=== PATIENT | female | born 1940 | race Caucasian/White ===

== ENCOUNTER 2016-10-30 | Observation (INO) | payer MEDICARE ==
[2016-10-30 12:15] LABS: HEMOGLOBIN 12.9 gm/dl (12.3-15.3); RED BLOOD COUNT 4.47 M/UL (4.00-5.10)
[2016-10-30 12:35] LABS: BUN/CREATININE RATIO 18 (0-10)
[2016-10-30] MEDS ORDERED: PRADAXA150 MG PO (18:37)
[2016-10-30] MEDS ORDERED: FLECAINIDE ACE150 MG PO (18:38)
[2016-10-30] MEDS ORDERED: COZAAR100 MG PO (18:40)
[2016-10-30] MEDS ORDERED: SENOKOT-S TABL1 EACH PO (18:41)
[2016-10-30] MEDS ORDERED: VITAMIN D31000 UNIT PO (18:43)
[2016-10-30] MEDS ORDERED: TYLENOL EXTRA500 MG PO (18:56)
[2016-10-30] MEDS ORDERED: TYLENOL 500 MG500 MG PO (19:00)
[2016-10-31 04:54] LABS: HEMOGLOBIN 12.1 gm/dl (12.3-15.3); RED BLOOD COUNT 4.17 M/UL (4.00-5.10); WHITE BLOOD COUNT 9.1 K/UL (4.5-11.0)
[2016-10-31 05:12] LABS: BUN/CREATININE RATIO 19 (0-10)
== END 2016-10-31 12:30 | disposition home or self-care (01) ==
PROVIDERS: Emergency Medicine; ADMIT Emergency Medicine
DX: I48.91 Unspecified atrial fibrillation (principal); E11.9 Type 2 diabetes mellitus without complications; I10 Essential (primary) hypertension; Z79.52 Long term (current) use of systemic steroids; Z79.899 Other long term (current) drug therapy; Z90.49 Acquired absence of other specified parts of digestive tract; Z90.89 Acquired absence of other organs; Z82.49 Family history of ischemic heart disease and other diseases of the circulatory system; Z82.3 Family history of stroke; Z80.1 Family history of malignant neoplasm of trachea, bronchus and lung
CPT/HCPCS: 36415; 71010; 80048; 80053; 80061; 82550; 82553; 83036; 83735; 83874; 84439; 84443; 84484; 85025; 85730; 93005; 96374; 99285; G0378